=== PATIENT | female | born 1990 | race Hispanic/Latino ===

== ENCOUNTER 2022-07-27 07:54 | Inpatient (IN) | payer MEDICAID, SELFPAY ==
[2022-07-26 10:21] LABS: #Eosinphils 0.1 10x3/uL (0.0-0.5); #Monocytes 0.4 10x3/uL (0.0-1.1); #Neutrophils 5.4 10x3/uL (1.5-8.4); %Basophils 0.4 % (0.0-2.0); %Lymphocytes 27.6 % (18.0-47.0); %Monocytes 5.3 % (0.0-10.0); %Neutrophils 65.3 % (40.0-75.0); Hemoglobin 12.2 g/dL (12.0-15.5); Mean Corpuscular HGB CONC 35.3 g/dL (32.0-36.0); Mean Corpuscular Hemoglobin 29.6 pg (27.0-33.0); Platelet Count 168 10x3/uL (150-450); RBC Distribution Width 14.4 % (11.5-14.5); Red Blood Cell (RBC) Count 4.12 10x6/uL (3.90-5.03); White Blood Cell (WBC) Count 8.3 10x3/uL (3.5-10.5)
[2022-07-26 10:48] LABS: SARS-CoV-2 NAA Rapid Test Not Detected (NotDetected)
[2022-07-26 10:50] LABS: HBSAg Index 0.18 S/CO (0-0.99); Hep B Surf Ag Non-Reactive S/CO (NonReactive)
[2022-07-26 10:51] LABS: Syphilis Antibody Nonreactive (Nonreactive); Syphilis Antibody Index 0.03 S/CO (<1.00 Non-Reactive)
[2022-07-27] MEDS: Lactated Ringer's 1,000 ML IV SCH ×2 (08:15→08:56)
[2022-07-27] MEDS ORDERED: Famotidine/PF 20 mg/2ml Vial SLOW IVP PRN (08:24)
[2022-07-27] MEDS ORDERED: hydrALAZINE 20 MG/ML VIAL SLOW IVP PRN ×2 (08:24→14:06)
[2022-07-27] MEDS ORDERED: Ondansetron PF 4 MG/2 ML Vial IVP PRN ×3 (08:24→14:06)
[2022-07-27] MEDS ORDERED: CEFAZOLIN 2 GM in Sodium Chloride 0.9% 100 ML IVPB SCH (08:24)
[2022-07-27] MEDS ORDERED: Bicitra 30 ML UDCUP PO PRN (08:24)
[2022-07-27] MEDS ORDERED: Promethazine HCl 25 MG/ML VIAL IM PRN ×2 (08:24→09:34)
[2022-07-27 08:31] VITALS: BMI 33.5
[2022-07-27] MEDS ORDERED: Fentanyl 100 MCG/2 ML VIAL SLOW IVP PRN (09:34)
[2022-07-27] MEDS ORDERED: diphenhydrAMINE 50 MG/ML VIAL IVP PRN (09:34)
[2022-07-27] MEDS ORDERED: Promethazine HCl 25 MG SUPP PR PRN (09:34)
[2022-07-27] MEDS ORDERED: Naloxone HCl 0.4 mg/ml Vial IV PRN (09:34)
[2022-07-27] MEDS ORDERED: Meperidine HCl/PF 25 MG/ML VIAL SLOW IVP PRN (09:34)
[2022-07-27] MEDS ORDERED: Moisturizing Cream (Eucerin) 113 GM JAR TOP PRN (09:34)
[2022-07-27] MEDS ORDERED: Naloxone HCl 0.4 mg/ml Vial IVP PRN ×2 (09:34)
[2022-07-27] MEDS ORDERED: Ondansetron HCl/PF 4 MG/2 ML Vial IVP PRN (09:34)
[2022-07-27] MEDS ORDERED: Communication Order-Pharmacy FS SCH (09:45)
[2022-07-27] MEDS ORDERED: Morphine PF 10 MG/10 ML VIAL ONE (09:50)
[2022-07-27] MEDS ORDERED: Metoclopramide HCl 10 MG/2 ML VIAL ONE (09:50)
[2022-07-27] MEDS ORDERED: Ondansetron PF 4 MG/2 ML Vial ONE (09:50)
[2022-07-27] MEDS ORDERED: Oxytocin 10 UNITS/ML VIAL ONE (10:13)
[2022-07-27] MEDS ORDERED: Ketorolac Tromethamine 30 MG/ML VIAL ONE (10:13)
[2022-07-27] MEDS ORDERED: Boostrix 0.5 ML (Tdap) VIAL (>/=7 yrs of age) IM ONE (14:06)
[2022-07-27] MEDS ORDERED: Lanolin Ointment 7 GM TUBE TOP PRN (14:06)
[2022-07-27] MEDS ORDERED: NS w/ Oxytocin 30 units 500 ML IV SCH (14:06)
[2022-07-27] MEDS ORDERED: Bisacodyl 10 MG SUPP PR PRN (14:06)
[2022-07-27] MEDS ORDERED: Simethicone Chewable 80 MG TAB PO PRN (14:06)
[2022-07-27] MEDS: Prenatal Vitamin 1 TAB PO SCH (18:18)
[2022-07-27] MEDS: Docusate 100 MG CAP PO SCH ×2 (18:18→21:00)
[2022-07-27] MEDS: Ferrous Sulfate 325 MG TAB PO SCH ×2 (18:18→21:00)
[2022-07-27] MEDS: Ketorolac Tromethamine 30 MG/ML VIAL IVP PRN (21:00)
[2022-07-27] MEDS ORDERED: HYDROcodone/Acetaminophen 5/325 mg Tablet PO PRN (21:45)
[2022-07-28 05:33] LABS: Hemoglobin 10.5 g/dL (12.0-15.5); Mean Corpuscular HGB CONC 35.4 g/dL (32.0-36.0); Mean Corpuscular Hemoglobin 29.7 pg (27.0-33.0); Mean Corpuscular Volume 84.1 fl (81.6-98.3); Mean Platelet Volume 12.8 fl (7.4-10.4); Platelet Count 155 10x3/uL (150-450); RBC Distribution Width 14.5 % (11.5-14.5); Red Blood Cell (RBC) Count 3.53 10x6/uL (3.90-5.03); White Blood Cell (WBC) Count 10.3 10x3/uL (3.5-10.5)
[2022-07-28] MEDS: Ketorolac Tromethamine 30 MG/ML VIAL IVP PRN (05:36)
[2022-07-28] MEDS: Ferrous Sulfate 325 MG TAB PO SCH ×2 (07:22→22:02)
[2022-07-28] MEDS: Prenatal Vitamin 1 TAB PO SCH (08:38)
[2022-07-28] MEDS: Docusate 100 MG CAP PO SCH ×2 (08:38→22:18)
[2022-07-28] MEDS: HYDROcodone/Acetaminophen 5/325 mg Tablet PO PRN (14:04)
[2022-07-28] MEDS: Ibuprofen 800 MG TAB PO SCH ×2 (14:07→22:18)
[2022-07-29] MEDS: Ibuprofen 800 MG TAB PO SCH (05:12)
[2022-07-29] MEDS: HYDROcodone/Acetaminophen 5/325 mg Tablet PO PRN (05:14)
[2022-07-29 07:57] VITALS: BP 120/71; TEMP 98.6
[2022-07-29] MEDS: Prenatal Vitamin 1 TAB PO SCH (09:01)
[2022-07-29] MEDS: Ferrous Sulfate 325 MG TAB PO SCH (09:01)
[2022-07-29] MEDS: Docusate 100 MG CAP PO SCH (09:01)
== END 2022-07-29 10:25 | disposition home or self-care (01) | DRG 785 ==
LOC: CSHLD 07:54 → CSHPED 13:00
PROVIDERS: ADMIT Obstetrics & Gynecology; ATTEND Obstetrics & Gynecology
PROC: 10D00Z1 Extraction of Products of Conception, Low, Open Approach (ICD-10-PCS; principal; 2022-07-27)
PROC: 0UT70ZZ Resection of Bilateral Fallopian Tubes, Open Approach (ICD-10-PCS; 2022-07-27)
DX: O34.211 Maternal care for low transverse scar from previous cesarean delivery (principal); Z37.0 Single live birth; Z3A.39 39 weeks gestation of pregnancy; Z20.822 Contact with and (suspected) exposure to COVID-19; Z80.0 Family history of malignant neoplasm of digestive organs; Z80.3 Family history of malignant neoplasm of breast
CPT/HCPCS: 36415; 36416; 51702; 85025; 85027; 86780; 86850; 86900; 86901; 87340; 88305; J1885; J2274; J2405; J2590; J2765; J7120; S0028; U0002